=== PATIENT | female | born 1955 | race Caucasian/White ===

== ENCOUNTER 2016-11-20 13:07 | Outpatient (CLI) | payer MEDICARE, MEDICAID ==
[~2016-11-20 13:07] MED LIST: ALBUTEROL0.83 MG/ML IH; AMITRIPTYLINE H10 M1 PO; ASPIRIN E.C. 8181 MG PO; ASTELIN NASAL S34 ML NS; CORDARONE200 MG/TAB PO; COUMADIN 22.5 MG/TAB PO; COUMADIN 3MG3 MG/TAB PO; DESYREL 50MG50 MG PO; FLEXERIL 1010 MG/TAB PO; GLUCOPHAGE XR500 M1 PO; GLUCOPHAGE500 MG/TAB PO; GLUCOTROL XL2.5 MG PO; IBREN600 MG PO; IBU400 MG PO; IBU600 MG PO; IRON CHELATED325 MG PO; IRON FERROUS S325 MG PO; IRON325 M1 PO; NEURONTIN100 MG/CAP PO; NEXIUM 40MG40 MG PO; NITROSTAT0.4 MG/TAB SL; PREMARIN 0.60.625 M1 PO; PRIL40 PO; PRINIVIL20 MG PO; TENORMIN 5050 MG/TAB PO; TRADJENTA5 MG PO; TRAVATAN Z 5 ML5 ML OU; TYLENOL W/COD1 UDTAB PO; VICTOZA6 MG/ML SC
[2016-11-20] MEDS ORDERED: ESTRACE2 MG PO (13:48)
[2016-11-20 13:50] VITALS: BP 127/63; PULSE 88; TEMP 98.1
[2016-11-20] MEDS ORDERED: SINGULAIR 110 MG/TAB PO (13:51)
[2016-11-20] MEDS ORDERED: XALATAN EYE DROPS OU (13:55)
[2016-11-20 13:59] LABS: HEMATOCRIT 36.7 % (37.0-47.0); HEMOGLOBIN 11.5 g/dl (12.5-16.0); MEAN CELL VOLUME 86 fl (80.0-100.0); MEAN CORPUSCULAR HEMOGLOBIN 27 pg (27.0-31.0); MEAN CORPUSCULAR HGB CONC 31 g/dl (33.0-37.0); PLATELET COUNT 239 K/mm3 (130-400); RED BLOOD COUNT 4.27 M/mm3 (4.10-5.30); WHITE BLOOD COUNT 4.7 K/mm3 (4.8-10.8)
[2016-11-20 14:08] LABS: INR 2.2 (0.8-3.0); PROTHROMBIN TIME 24.7 SECONDS (9.7-12.8)
[2016-11-20] MEDS ORDERED: ANTIVERT 25MG25 MG PO (14:11)
[2016-11-20 15:55] VITALS: BP 112/62; PULSE 76; TEMP 97.4
[2016-11-20 16:30] VITALS: BP 117/71; PULSE 72; TEMP 97.6
== END 2016-11-20 16:38 | disposition home or self-care (01) ==
LOC: COL.RAD 13:07
PROVIDERS: Internal Medicine Interventional Cardiology
DX: R42 Dizziness and giddiness (principal); R07.89 Other chest pain; E78.5 Hyperlipidemia, unspecified; E11.9 Type 2 diabetes mellitus without complications; Z79.82 Long term (current) use of aspirin; Z79.899 Other long term (current) drug therapy; Z79.01 Long term (current) use of anticoagulants
CPT/HCPCS: C1764

== ENCOUNTER 2017-04-22 14:22 | Emergency (ER) | payer MEDICARE, MEDICAID ==
[~2017-04-22] VITALS: Ht 154.9 cm; Wt 75.0 kg
[~2017-04-22 14:22] MED LIST changes: +ANTIVERT 25MG25 MG PO; +ESTRACE2 MG PO; +SINGULAIR 110 MG/TAB PO; +XALATAN EYE DROPS OU
[2017-04-22 14:28] VITALS: BP 143/79; TEMP 98.5
[2017-04-22 16:00] LABS: PH 5 (5-8); SQUAMOUS EPITHELIAL 0-2 /hpf; URINE APPEARANCE Clear; URINE BACTERIA None Seen /hpf; URINE BILIRUBIN Negative (NEGATIVE); URINE BLOOD Negative (NEGATIVE); URINE COLOR Yellow; URINE GLUCOSE 3+ (NEGATIVE); URINE KETONE Negative (NEGATIVE); URINE UROBILINOGEN Negative (NEGATIVE); URINE WBC 0-2 /hpf
[2017-04-22] MEDS ORDERED: NORCO 325 MG-51 TAB PO (16:52)
[2017-04-22 17:17] VITALS: PULSE 85
[2017-04-22] MEDS ORDERED: CORDARONE200 MG/TAB PO (19:08)
[2017-04-22] MEDS ORDERED: AMITRIPTYLINE H10 M1 PO (19:08)
[2017-04-22] MEDS ORDERED: DIABETA 5MG5 MG/TAB PO (19:09)
[2017-04-22] MEDS ORDERED: CALCIUM 600MG+D1 TAB PO (19:09)
[2017-04-22] MEDS ORDERED: PREMARIN 0.60.625 M1 PO (19:10)
[2017-04-22] MEDS ORDERED: TOPROL XL100 MG PO (19:10)
[2017-04-22] MEDS ORDERED: JANUVIA 100MG100 MG PO (19:10)
[2017-04-22] MEDS ORDERED: PRIL40 PO (19:11)
[2017-04-22] MEDS ORDERED: GLUCOTROL XL2.5 MG PO (19:11)
[2017-04-22] MEDS ORDERED: COUMADIN 3MG3 MG/TAB PO (19:12)
[2017-04-22] MEDS ORDERED: INVOKAMET1 (19:12)
== END 2017-04-22 17:17 | disposition home or self-care (01) ==
LOC: COL.ER 14:22
PROVIDERS: Physician Assistant
DX: M54.6 Pain in thoracic spine (principal); G89.29 Other chronic pain; I10 Essential (primary) hypertension; E11.9 Type 2 diabetes mellitus without complications; J45.909 Unspecified asthma, uncomplicated; M79.7 Fibromyalgia; Z79.84 Long term (current) use of oral hypoglycemic drugs

== ENCOUNTER 2020-03-02 14:56 | Emergency (ER) | payer MEDICARE, MEDICAID ==
[~2020-03-02] VITALS: Ht 154.9 cm; Wt 77.3 kg
[~2020-03-02 14:56] MED LIST changes: +CALCIUM 600MG+D1 TAB PO; +DIABETA 5MG5 MG/TAB PO; +INVOKAMET1; +JANUVIA 100MG100 MG PO; +NORCO 325 MG-51 TAB PO; +TOPROL XL100 MG PO
[2020-03-02 15:01] VITALS: TEMP 98.1
[2020-03-02] MEDS ORDERED: LASIX 20MG TABL20 MG PO (15:25)
[2020-03-02] MEDS ORDERED: VALIUM 5MG T5 MG/TAB PO (15:30)
[2020-03-02] MEDS ORDERED: NORCO 325 MG-51 TAB PO (15:30)
[2020-03-02 16:22] VITALS: BP 125/110; PULSE 91
== END 2020-03-02 16:22 | disposition home or self-care (01) ==
LOC: COL.ER 14:56
DX: M62.830 Muscle spasm of back (principal); M54.5 Low back pain; G89.29 Other chronic pain; M79.7 Fibromyalgia; I10 Essential (primary) hypertension; E11.9 Type 2 diabetes mellitus without complications; Z79.01 Long term (current) use of anticoagulants; Z79.82 Long term (current) use of aspirin; Z79.84 Long term (current) use of oral hypoglycemic drugs; Z79.891 Long term (current) use of opiate analgesic; Z95.2 Presence of prosthetic heart valve
CPT/HCPCS: J1170; J3360

== ENCOUNTER 2020-05-21 11:28 | Day surgery (SDC) | payer MEDICARE, MEDICAID ==
[~2020-05-21] VITALS: Ht 157.5 cm; Wt 76.1 kg
[2020-05-21] VITALS (8 sets, daily range): BP systolic 10–125; BP diastolic 57–75; PULSE 65–80; TEMP 98.1–98.5
[~2020-05-21 11:28] MED LIST changes: +LASIX 20MG TABL20 MG PO; +PERCOCET 325 MG1 TA2 PO; +VALIUM 5MG T5 MG/TAB PO
[2020-05-21 13:03] LABS: INR 3.5 (0.8-3.0); PROTHROMBIN TIME 39.3 SECONDS (9.7-12.8)
[2020-05-21 13:09] LABS: POTASSIUM 3.9 mmol/L (3.4-5.0)
[2020-05-21 13:44] LABS: THYROID STIMULATING HORMONE 1.58 uIU/mL (0.465-4.680)
--- NOTE | 2020-05-21 13:54 | NUR ---
Report received from Timur RUTH
--- NOTE | 2020-05-21 15:52 | NUR ---
IV discontinued, patient able to dress self and collect belongings. States all questions have been answered. Taken to POV operated by in wheelchair with belongings in hand. Denies any pain, discomfort, or nausea. Able to tolerate PO without incident.
== END 2020-05-21 15:52 | disposition home or self-care (01) ==
LOC: COL.CAR 11:28
PROVIDERS: Internal Medicine Interventional Cardiology
DX: I48.0 Paroxysmal atrial fibrillation (principal); I48.92 Unspecified atrial flutter; I08.1 Rheumatic disorders of both mitral and tricuspid valves; E11.9 Type 2 diabetes mellitus without complications; M79.7 Fibromyalgia; M19.90 Unspecified osteoarthritis, unspecified site; Z79.84 Long term (current) use of oral hypoglycemic drugs; Z20.828 Contact with and (suspected) exposure to other viral communicable diseases; Z79.82 Long term (current) use of aspirin; Z79.01 Long term (current) use of anticoagulants; Z95.2 Presence of prosthetic heart valve; Z88.5 Allergy status to narcotic agent; Z88.8 Allergy status to other drugs, medicaments and biological substances; Z91.041 Radiographic dye allergy status
CPT/HCPCS: J2704; J7030

== ENCOUNTER 2021-05-19 08:05 | Day surgery (SDC) | payer MEDICARE, MEDICAID ==
[2021-05-19] VITALS (11 sets, daily range): BP systolic 106–143; BP diastolic 61–89; PULSE 70–90; TEMP 97.8
[~2021-05-19] VITALS: Ht 157.6 cm; Wt 71.0 kg
[2021-05-19] MEDS ORDERED: TYLENOL W/COD1 UDTAB PO (09:15)
[2021-05-19] MEDS ORDERED: IRON TABLETS325 MG (09:16)
[2021-05-19] MEDS ORDERED: COUMADIN 22.5 MG/TAB PO (09:17)
[2021-05-19] MEDS ORDERED: MOTRIN 600600 MG/TAB PO (09:17)
[2021-05-19] MEDS ORDERED: NITROSTAT0.4 MG/TAB SL (09:18)
[2021-05-19] MEDS ORDERED: GLUCOPHAGE500 MG/TAB PO (09:19)
[2021-05-19] MEDS ORDERED: VICTOZA6 MG/ML SQ (09:20)
[2021-05-19] MEDS ORDERED: TENORMIN 5050 MG/TAB PO (09:20)
[2021-05-19] MEDS ORDERED: TRADJENTA5 MG PO (09:21)
[2021-05-19] MEDS ORDERED: PREDNISONE20 MG PO (09:22)
[2021-05-19 09:25] LABS: HEMOGLOBIN 12.2 g/dl (12.5-16.0); MEAN CELL VOLUME 84 fl (80.0-100.0); MEAN CORPUSCULAR HEMOGLOBIN 27 pg (27.0-31.0); MEAN CORPUSCULAR HGB CONC 32 g/dl (33.0-37.0); MEAN PLATELET VOLUME 9.9 fl (7.4-10.4); PLATELET COUNT 298 K/mm3 (130-400); RED BLOOD COUNT 4.55 M/mm3 (4.10-5.30); REDCELL DISTRIBUTION WIDTH-CV 15.9 % (11.5-14.5)
[2021-05-19 09:34] LABS: INR 2.3 (0.8-3.0); PROTHROMBIN TIME 26.2 SECONDS (9.7-12.8)
[2021-05-19 09:36] LABS: PARTIAL THROMBOPLASTIN TIME 34.5 SECONDS (26.0-37.0)
[2021-05-19 09:38] LABS: CALCIUM 9.2 mg/dL (8.4-10.2); CREATININE, serum 0.47 (0.52-1.25)
--- NOTE | 2021-05-19 09:59 | NUR ---
DR LUNA CALLED CONCERNING PLAVIX ORDER, PREMEDS GIVEN ORDERED
--- NOTE | 2021-05-19 11:15 | NUR ---
pt returned to rm 12 via bed from record label internship, awake and alert. Pt has TR band on site is clean and dry, no swelling noted, pt has angioseal with dressing to right groin that is clean and dry. placed on TELE, reviewed bedrest with pt and to keep flat and not to use right arm with verbal understanding to prevent bleeding, call light in reach, in trendelenburg at this time
--- NOTE | 2021-05-19 12:00 | NUR ---
pt rests with eyes closed, does take water with assist, TR band remains on with no signs of bleeding, no c/o or requests
--- NOTE | 2021-05-19 13:15 | NUR ---
lunch ordered, start of releasee of TR band 2cc at a time over 30 min, bandaid placed over site, then coban for support, no swelling or bleeding noted, pt watches tv, takes snack and sprite
--- NOTE | 2021-05-19 15:15 | NUR ---
pt HOB elevated 40 degrees tolerates well, eats lunch, reviewed discharge inst. with pt on care of sites radial and groin sites, precautions and activity, also reviewed medication list with pt, not to take metformin for 48 hrs. reviewed when to call also with verbal understanding
--- NOTE | 2021-05-19 15:30 | NUR ---
pt sat on side of bed, tolerated well, up to b/r to void, site is unchanged, clean and dry. pt up in room dressed.
--- NOTE | 2021-05-19 16:00 | NUR ---
iv d'cd intact, pt waits for ride, discharged via w/c to car with with discharge paper work
== END 2021-05-19 16:00 | disposition home or self-care (01) ==
LOC: COL.CAR 08:05
PROVIDERS: Internal Medicine Interventional Cardiology
DX: R07.9 Chest pain, unspecified (principal); I10 Essential (primary) hypertension; E78.5 Hyperlipidemia, unspecified; E11.9 Type 2 diabetes mellitus without complications; R94.39 Abnormal result of other cardiovascular function study; Z86.16 Personal history of COVID-19; Z79.01 Long term (current) use of anticoagulants; Z79.84 Long term (current) use of oral hypoglycemic drugs; Z79.899 Other long term (current) drug therapy
CPT/HCPCS: C1760; C1769; C1894; J1200; J1644; J2250; J3010

== ENCOUNTER → 2021-05-24 | Outpatient (CLI) | payer MEDICARE, MEDICAID ==
[~2021-05-24] MED LIST changes: +IRON TABLETS325 MG; +MOTRIN 600600 MG/TAB PO; +PREDNISONE20 MG PO; +VICTOZA6 MG/ML SQ
[2021-05-24 17:35] LABS: BASO % 0.6 % (0.0-2.0); EOS # 0.2 (0.0-0.7); EOS % 3.5 % (0-4.0); GRAN # 4.1 (1.4-6.5); GRAN % 61.1 % (42.2-75.2); LYMPH # 1.7 (1.2-3.4); LYMPH % 24.9 % (20.0-51.0); MEAN CELL VOLUME 91 fl (80.0-100.0); MEAN CORPUSCULAR HGB CONC 31 g/dl (33.0-37.0); MEAN PLATELET VOLUME 9.9 fl (7.4-10.4); MONO # 0.7 (0.1-0.6); MONO % 9.6 % (1.7-9.3); PLATELET COUNT 274 K/mm3 (130-400); RED BLOOD COUNT 3.46 M/mm3 (4.10-5.30); REDCELL DISTRIBUTION WIDTH-CV 16.9 % (11.5-14.5)
[2021-05-24 17:36] LABS: HEMATOCRIT 31.5 % (37.0-47.0); HEMOGLOBIN 9.6 g/dl (12.5-16.0); MEAN CORPUSCULAR HEMOGLOBIN 28 pg (27.0-31.0)
[2021-05-24 17:41] LABS: ALBUMIN 3.9 gm/dL (3.5-5.0); BILIRUBIN,TOTAL 0.5 mg/dL (0.0-1.0); CALCIUM 8.6 mg/dL (8.4-10.2); CREATININE, serum 0.84 (0.52-1.25); POTASSIUM 4.3 mmol/L (3.4-5.0); TOTAL PROTEIN 7.4 gm/dL (6.4-8.2)
== END ==
LOC: COL.LAB 16:55
PROVIDERS: Nurse Practitioner
DX: R10.31 Right lower quadrant pain (principal)

== ENCOUNTER 2021-10-04 15:56 | Emergency (ER) | payer MEDICARE, MEDICAID ==
[~2021-10-04] VITALS: Ht 157.5 cm; Wt 65.9 kg
[2021-10-04 17:00] VITALS: TEMP 98.1
[2021-10-04 17:19] LABS: COLLECTION METHOD CLEAN CATCH
[2021-10-04 17:27] LABS: PH 7 (5-8); SQUAMOUS EPITHELIAL None Seen /hpf (0-10); URINE APPEARANCE Cloudy (CLEAR/HAZY); URINE BACTERIA None Seen /hpf (NONE SEEN); URINE BILIRUBIN Negative (NEGATIVE); URINE BLOOD 2+ (NEGATIVE); URINE COLOR Red (YELLOW); URINE GLUCOSE 3+ (NEGATIVE); URINE KETONE Trace (NEGATIVE); URINE LEUKOCYTE ESTERASE Negative (NEGATIVE); URINE NITRATE Negative (NEGATIVE); URINE PROTEIN(semi-quant) 2+ (NEGATIVE); URINE RBC >50 /hpf (0-2); URINE UROBILINOGEN Negative (NEGATIVE)
[2021-10-04 20:24] LABS: BASO % 0.7 % (0.0-2.0); EOS # 0.3 K/mm3 (0.0-0.7); EOS % 5.5 % (0.0-4.0); GRAN % 54.6 % (42.2-75.2); HEMOGLOBIN 11.3 g/dl (12.5-16.0); LYMPH # 1.5 K/mm3 (1.2-3.4); LYMPH % 28.3 % (20.0-51.0); MEAN CELL VOLUME 83 fl (80.0-100.0); MEAN CORPUSCULAR HEMOGLOBIN 26 pg (27-31); MEAN CORPUSCULAR HGB CONC 31 g/dl (33.0-37.0); MEAN PLATELET VOLUME 9.2 fl (7.4-10.4); MONO # 0.6 K/mm3 (0.1-0.6); MONO % 10.5 % (1.7-9.3); PLATELET COUNT 323 K/mm3 (130-400); RED BLOOD COUNT 4.41 M/mm3 (4.10-5.30); REDCELL DISTRIBUTION WIDTH-CV 17.5 % (11.5-14.5)
[2021-10-04 20:28] LABS: HEMATOCRIT 36.6 % (37.0-47.0)
[2021-10-04 20:54] LABS: ALBUMIN 3.4 gm/dL (3.4-4.8); BILIRUBIN,TOTAL 0.2 mg/dL (0.2-1.2); C-REACTIVE PROTEIN 6.27 mg/dL (0.00-0.50); CALCIUM 8.8 mg/dL (8.4-10.2); CREATININE, serum 0.62 mg/dL (0.57-1.11); POTASSIUM 3.9 mmol/L (3.5-4.5); TOTAL PROTEIN 7.9 gm/dL (6.2-8.1)
[2021-10-04 21:12] LABS: INR QNS (0.8-3.0); PARTIAL THROMBOPLASTIN TIME QNS SECONDS (26.0-37.0); PROTHROMBIN TIME QNS SECONDS (9.7-12.8)
[2021-10-04 21:52] LABS: PARTIAL THROMBOPLASTIN TIME 129.5 SECONDS (26.0-37.0)
[2021-10-04 21:53] LABS: INR 24.5 (0.8-3.0)
[2021-10-04 21:55] LABS: PROTHROMBIN TIME 280.5 SECONDS (9.7-12.8)
[2021-10-05 04:24] LABS: BASO % 0.7 % (0.0-2.0); EOS # 0.3 K/mm3 (0.0-0.7); EOS % 4.1 % (0.0-4.0); GRAN # 3.8 K/mm3 (1.4-6.5); GRAN % 62.5 % (42.2-75.2); HEMOGLOBIN 10.8 g/dl (12.5-16.0); LYMPH # 1.3 K/mm3 (1.2-3.4); LYMPH % 21.6 % (20.0-51.0); MEAN CELL VOLUME 81 fl (80.0-100.0); MEAN CORPUSCULAR HEMOGLOBIN 25 pg (27-31); MEAN CORPUSCULAR HGB CONC 31 g/dl (33.0-37.0); MEAN PLATELET VOLUME 9.1 fl (7.4-10.4); MONO # 0.7 K/mm3 (0.1-0.6); MONO % 10.6 % (1.7-9.3); PLATELET COUNT 304 K/mm3 (130-400); RED BLOOD COUNT 4.31 M/mm3 (4.10-5.30); REDCELL DISTRIBUTION WIDTH-CV 17.4 % (11.5-14.5)
[2021-10-05 04:32] LABS: INR 4.6 (0.8-3.0)
[2021-10-05 04:37] LABS: CALCIUM 8.7 mg/dL (8.4-10.2); CREATININE, serum 0.59 mg/dL (0.57-1.11); POTASSIUM 4.1 mmol/L (3.5-4.5)
[2021-10-05 04:52] LABS: PROTHROMBIN TIME 51.7 SECONDS (9.7-12.8)
[2021-10-05 09:01] VITALS: BP 127/82; PULSE 102
--- NOTE | 2021-10-05 15:40 | NUR ---
school social worker met with patient to discuss discharge. Patient states she will be returning home where she resides with her spouse in [place]. Patient has a [employer] machine that may have malfunctioned. Worker contacted patient's primary care provider's (dr Sammi Hawley) nurse, MARY and provided the above information. Worker faxed MARY the emergency record and have left messages with patient to call. Patient will need to take her [employer] machine to the [facility] and utilize the machine within 15 minutes of the hospital drawing labs. [employer] #[phone] will need to obtain this date to ensure that patient's machine is malfunctioning and to provide a new machine. MARY is aware of the above information.
--- NOTE | 2021-10-06 11:53 | NUR ---
retail salesworker was able to contact patient and advise of needed patient testing of [employer] machine 15 minutes prior to testing at [facility]. Patient verbalized understanding. Worker provided patient with the [employer] company contact number.
== END 2021-10-05 09:33 | disposition other institution (70) ==
LOC: COL.ER 15:56
PROVIDERS: Emergency Medicine; Student in an Organized Health Care Education/Training Program
DX: K92.2 Gastrointestinal hemorrhage, unspecified (principal); R31.9 Hematuria, unspecified; R79.0 Abnormal level of blood mineral; E11.9 Type 2 diabetes mellitus without complications; I10 Essential (primary) hypertension; Z79.84 Long term (current) use of oral hypoglycemic drugs; Z79.899 Other long term (current) drug therapy
CPT/HCPCS: 99223-AI; 99239; J3430

== ENCOUNTER 2021-12-23 21:00 | Emergency (ER) | payer MEDICARE, MEDICAID ==
[~2021-12-23] VITALS: Ht 157.5 cm; Wt 66.4 kg
[2021-12-23 21:13] VITALS: TEMP 98.8
[2021-12-23 22:02] LABS: BASO % 0.5 % (0.0-2.0); EOS # 0.3 K/mm3 (0.0-0.7); EOS % 5.1 % (0.0-4.0); GRAN # 3.6 K/mm3 (1.4-6.5); GRAN % 61.2 % (42.2-75.2); HEMATOCRIT 39.1 % (37.0-47.0); HEMOGLOBIN 12.3 g/dl (12.5-16.0); LYMPH # 1.4 K/mm3 (1.2-3.4); LYMPH % 23.7 % (20.0-51.0); MEAN CELL VOLUME 85 fl (80.0-100.0); MEAN CORPUSCULAR HEMOGLOBIN 27 pg (27-31); MEAN CORPUSCULAR HGB CONC 32 g/dl (33.0-37.0); MONO # 0.5 K/mm3 (0.1-0.6); MONO % 9.2 % (1.7-9.3); PLATELET COUNT 316 K/mm3 (130-400); RED BLOOD COUNT 4.59 M/mm3 (4.10-5.30); REDCELL DISTRIBUTION WIDTH-CV 17.1 % (11.5-14.5)
[2021-12-23 22:27] LABS: ALBUMIN 3.4 gm/dL (3.4-4.8); BILIRUBIN,TOTAL 0.1 mg/dL (0.2-1.2); CALCIUM 8.6 mg/dL (8.4-10.2); CREATININE, serum 0.71 mg/dL (0.57-1.11); POTASSIUM 4.1 mmol/L (3.5-4.5); TOTAL PROTEIN 8.3 gm/dL (6.2-8.1)
[2021-12-23 22:39] LABS: COLLECTION METHOD CLEAN CATCH
[2021-12-23 22:45] LABS: PH 6 (5-8); SQUAMOUS EPITHELIAL 0-2 /hpf (0-10); URINE APPEARANCE Clear (CLEAR/HAZY); URINE BACTERIA None Seen /hpf (NONE SEEN); URINE BILIRUBIN Negative (NEGATIVE); URINE BLOOD Negative (NEGATIVE); URINE COLOR Straw (YELLOW); URINE GLUCOSE 3+ (NEGATIVE); URINE KETONE Negative (NEGATIVE); URINE LEUKOCYTE ESTERASE Negative (NEGATIVE); URINE NITRATE Negative (NEGATIVE); URINE PROTEIN(semi-quant) Negative (NEGATIVE); URINE RBC 0-2 /hpf (0-2); URINE UROBILINOGEN Negative (NEGATIVE)
[2021-12-23 23:40] VITALS: BP 117/62; PULSE 80
== END 2021-12-23 23:45 | disposition home or self-care (01) ==
LOC: COL.ER 21:00
PROVIDERS: Student in an Organized Health Care Education/Training Program
DX: R10.2 Pelvic and perineal pain (principal); G47.30 Sleep apnea, unspecified; B99.8 Other infectious disease; Z79.2 Long term (current) use of antibiotics
CPT/HCPCS: Q9967